=== PATIENT | female | born 1960 | race Caucasian/White ===

== ENCOUNTER 2017-06-26 08:15 | Day surgery (SDC) | payer BC ==
[2017-06-25 12:22] LABS: A/G RATIO 1.2 (0.7-1.9); ALBUMIN 3.6 G/DL (3.5-5.0); ALKALINE PHOSPHATASE 73 U/L (45-117); BUN (BLOOD UREA NITROGEN) 18 MG/DL (6-23); CALCIUM, SERUM 9.5 MG/DL (8.5-10.4); CHLORIDE, SERUM 108 MMOL/L (96-112); CO2 (CARBON DIOXIDE) 31 MMOL/L (24-34); CREATININE 0.68 MG/DL (0.55-1.02); GFR AFRICAN AMERICAN 114 ML/MIN (>=60); GFR NON AFRICAN AMERICAN 98 ML/MIN (>=60); GLOBULIN 2.9 G/DL (2.5-4.1); GLUCOSE, SERUM 87 MG/DL (60-99); POTASSIUM, SERUM 5.2 MMOL/L (3.5-5.3); SGOT(AST) 16 U/L (5-40); SGPT(ALT) 19 U/L (5-65); SODIUM, SERUM 145 MMOL/L (135-148); TOTAL BILIRUBIN 0.6 MG/DL (0-1.2); TOTAL PROTEIN 6.5 G/DL (6.0-8.5)
[~2017-06-26] VITALS: Ht 167.6 cm; Wt 81.6 kg
--- NOTE | ~2017-06-26 | OP ---
Record Of Operation [facility] [address] [place]. [address] NAME: ANJELICA CALDERÓN : 62 STATUS : REG [facility] PAT#: [id number] AGE: 56 ADM/REG DATE : 06/26/17 MR#: [id number] REPORT SERV DATE: 06/26/17 DICTATED BY: MAYNOR BRITO DATE: 06/26/17 REPORT STATUS : Draft TRANSCRIBED BY: MODAbel DATE: 06/26/17 DATE OF PROCEDURE: 06/26/2017 PREOPERATIVE DIAGNOSIS: Symptomatic cholelithiasis. POSTOPERATIVE DIAGNOSIS: Symptomatic cholelithiasis. OPERATION PERFORMED: Laparoscopic cholecystectomy. ANESTHESIA: General. ESTIMATED BLOOD LOSS: Less than 10 mL. IV FLUIDS: Adequate. INDICATIONS FOR PROCEDURE: Ms. Calderón is a 56-year-old white female, who has developed intermittent right upper quadrant pain and some nausea with meals. She has an ultrasound which is consistent with cholelithiasis. She is brought to the operating room today with a diagnosis of symptomatic cholelithiasis. DESCRIPTION OF OPERATION: After appropriate sedation, the patient was prepped and draped in proper sterile fashion. Skin and subcutaneous tissues around the umbilicus were infiltrated with local anesthesia. A vertical incision was made at the umbilical skin. She had a small umbilical hernia, which was opened up slightly, and a 10 mm trocar was placed in the abdomen. The abdomen was insufflated to 15 mmHg. We then placed a 10 mm subxiphoid and two right lateral 5 mm trocars under direct visualization after obtaining local anesthesia in standard fashion. The gallbladder was visualized, was grasped, taken cephalad, was noted to have multiple stones. We incised the peritoneum on both sides of the gallbladder to help with mobilization. We dissected out the cystic duct and the cystic artery as well as posterior to the gallbladder. We were therefore able to demonstrate the critical view of safety. The cystic artery and duct were ligated in between hemoclips, and gallbladder was removed from gallbladder fossa using hook cautery and brought out through the umbilical trocar site. We replaced the trocar and visualized the right upper quadrant. No evidence of bleeding or bile leak. We visualized our clips, which were intact. We instilled 20 mL of Marcaine over the right lobe of the liver. We removed our trocars under direct visualization. There was no evidence of bleeding from the abdominal wall. The abdomen was then desufflated. The fascia at the umbilical trocar site was then closed using 0 Vicryl suture. The skin was closed using interrupted running 4-0 Monocryl suture. Steri-Strips and dressings were then placed. The patient was taken to the recovery room in satisfactory condition. KEZIA/JOHANN Maynor [facility] [id number] [place]. [address] NAME: ANJELICA CALDERÓN : 62 STATUS : REG [facility]#: [id number] AGE: 56 ADM/REG DATE : 06/26/17 MR#: [id number] REPORT SERV DATE: 06/26/17 DICTATED BY: MAYNOR BRITO DATE: 06/26/17 REPORT STATUS : Draft TRANSCRIBED BY: JOHANN DATE: 06/26/17 Judi Brito / [id number] CC: Judi Lopez M.D.
[~2017-06-26 08:15] MED LIST: ADVIL PO; MULTIVIT/MIN PO; ULTRAM50 PO; ZOFRAN4 PO
== END 2017-06-26 14:23 | disposition home or self-care (01) ==
LOC: SDC 08:15
PROVIDERS: Specialist
PROC: 0FT44ZZ Resection of Gallbladder, Percutaneous Endoscopic Approach (ICD-10-PCS; principal; 2017-06-26 09:45)
DX: K80.10 Calculus of gallbladder with chronic cholecystitis without obstruction (principal); Z90.710 Acquired absence of both cervix and uterus
CPT/HCPCS: 80053; 88304; A9270-GY; J0690; J1170; J1885; J2250; J2405; J2710; J3010; Q9967